=== PATIENT | female | born 1940 | race Caucasian/White ===

== ENCOUNTER 2018-11-27 14:22 | Inpatient (IN) | payer OTHER, MEDICAID ==
[~2018-11-27] VITALS: Ht 160 cm; Wt 108.0 kg
[2018-11-27 14:22] VITALS: BP_SYST 145
[2018-11-27] MEDS ORDERED: KETOROLAC TROMETHAMINE 15 MG VIAL IVP ONE (15:00)
[2018-11-27 15:22] LABS: BASOPHILS % (AUTO) 0.4 % (0.0-2.0); EOSINOPHILS # (AUTO) 0.1 K/uL (0.0-0.4); EOSINOPHILS % (AUTO) 2.1 % (0.0-4.0); HEMATOCRIT 44.2 % (36-48); HEMOGLOBIN 14.5 g/dL (12.0-16.0); LYMPHOCYTES # (AUTO) 0.8 K/uL (1.0-5.5); MEAN CORPUSCULAR HEMOGLOBIN 29 pg (27-31); MEAN CORPUSCULAR HGB CONC 33 % (32-36); MEAN CORPUSCULAR VOLUME 89 fL (79.0-98.0); MONOCYTES # (AUTO) 0.3 K/uL (0.0-1.0); MONOCYTES % (AUTO) 6.6 % (1.7-9.3); NEUTROPHILS % (AUTO) 71.9 % (40.0-70.0); PLATELET COUNT (AUTO) 110 K/uL (130-430); RED BLOOD CELL COUNT(AUTO) 4.98 MIL/uL (4.2-6.2); WHITE BLOOD COUNT (AUTO) 4.1 K/uL (4.8-10.8)
[2018-11-27 15:29] LABS: ANION GAP 6 (5-15); CALCIUM 8.7 mg/dL (8.4-11.0); CHLORIDE 104 mmol/L (98-107); CREATININE 0.81 mg/dL (0.55-1.30); GLUCOSE 95 mg/dL (70-99); SODIUM SERUM 136 mmol/L (136-145); UREA NITROGEN, BLOOD 20 mg/dL (8-21)
[2018-11-27 15:34] LABS: ALANINE AMINOTRANSFERASE 33 U/L (12-78); ALBUMIN 3.2 g/dL (3.4-4.8); ASPARTATE AMINOTRANSFERASE 55 U/L (10-37); LIPASE 117 U/L (73-393); TOTAL BILIRUBIN 0.5 mg/dL (0.0-1.0)
[2018-11-27] MEDS ORDERED: MORPHINE 2 MG/ML INJ. SYRINGE IVP ONE (17:00)
[2018-11-27] MEDS ORDERED: ONDANSETRON HCL 4 MG/2 ML VIAL IVP ONE (17:00)
[2018-11-27] MEDS ORDERED: ASPIRIN 81 MG TAB.CHEW PO ONE (17:00)
[2018-11-27] MEDS ORDERED: LIP10 PO (19:16)
[2018-11-27] MEDS ORDERED: HYDR-4274 PO (19:16)
[2018-11-27] MEDS ORDERED: LEVO125T8 PO (19:16)
[2018-11-27] MEDS ORDERED: CARV6.2554 PO (19:16)
[2018-11-27] MEDS ORDERED: ASPI-1154 PO (19:16)
[2018-11-27] MEDS ORDERED: OLME20TA14 PO (19:17)
[2018-11-27] MEDS ORDERED: IMI50 PO (19:17)
[2018-11-27 21:14] VITALS: BP_SYST 146
[2018-11-27] MEDS ORDERED: LORazepam 2 MG/ML VIAL IVP PRN (21:30)
[2018-11-27] MEDS ORDERED: ONDANSETRON HCL 4 MG/2 ML VIAL IVP PRN (21:30)
[2018-11-27] MEDS: NORMAL SALINE 5 ML DISP.SYRIN IVF SCH (23:01)
[2018-11-27] MEDS: ACETAMINOPHEN 325 MG TABLET PO PRN (23:46)
[2018-11-28 00:16] VITALS: BP_SYST 156
[2018-11-28] MEDS ORDERED: HYDROcodone/ACETAMIN 10-325 MG TAB PO PRN (04:15)
[2018-11-28] MEDS: LEVOTHYROXINE SODIUM 0.125 MG TABLET PO SCH (06:03)
[2018-11-28] MEDS: NORMAL SALINE 5 ML DISP.SYRIN IVF SCH ×3 (06:03→21:46)
[2018-11-28 08:19] VITALS: BP_SYST 138
[2018-11-28] MEDS: CARVEDILOL 6.25 MG TABLET (COREG) PO SCH ×2 (08:35→17:34)
[2018-11-28] MEDS: LOSARTAN POTASSIUM 50 MG TABLET (COZAAR) PO SCH (08:36)
[2018-11-28] MEDS: ASPIRIN 81 MG TABLET(ECOTRIN) PO SCH (08:37)
[2018-11-28] MEDS: ATORVASTATIN 10 MG TABLET PO SCH (08:37)
[2018-11-28 08:40] LABS: BASOPHILS % (AUTO) 0.4 % (0.0-2.0); EOSINOPHILS # (AUTO) 0.1 K/uL (0.0-0.4); HEMATOCRIT 43.4 % (36-48); HEMOGLOBIN 14.5 g/dL (12.0-16.0); LYMPHOCYTES # (AUTO) 0.6 K/uL (1.0-5.5); LYMPHOCYTES % (AUTO) 17.3 % (20.5-51.5); MEAN CORPUSCULAR HEMOGLOBIN 30 pg (27-31); MEAN CORPUSCULAR HGB CONC 33 % (32-36); MEAN CORPUSCULAR VOLUME 89 fL (79.0-98.0); MONOCYTES # (AUTO) 0.2 K/uL (0.0-1.0); MONOCYTES % (AUTO) 5.4 % (1.7-9.3); NEUTROPHILS # (AUTO) 2.6 K/uL (1.8-7.7); NEUTROPHILS % (AUTO) 74.9 % (40.0-70.0); PLATELET COUNT (AUTO) 112 K/uL (130-430); RED BLOOD CELL COUNT(AUTO) 4.89 MIL/uL (4.2-6.2); RED CELL DISTRIBUTION WIDTH 14.7 % (9.0-15.0); WHITE BLOOD COUNT (AUTO) 3.4 K/uL (4.8-10.8)
[2018-11-28 08:54] LABS: ANION GAP 7 (5-15); CALCIUM 8.8 mg/dL (8.4-11.0); CHLORIDE 105 mmol/L (98-107); CREATININE 0.85 mg/dL (0.55-1.30); GLUCOSE 90 mg/dL (70-99); PHOSPHORUS 4.2 mg/dL (2.7-4.5); SODIUM SERUM 137 mmol/L (136-145); UREA NITROGEN, BLOOD 17 mg/dL (8-21)
[2018-11-28] MEDS ORDERED: SUMAtriptan SUCCINATE 50 MG TABLET PO PRN (09:00)
[2018-11-28 12:00] VITALS: BP_SYST 158
[2018-11-28] MEDS: ACETAMINOPHEN 325 MG TABLET PO PRN ×2 (14:43→22:58)
[2018-11-28 15:44] VITALS: BP_SYST 164
[2018-11-28 18:46] VITALS: BP_SYST 140
[2018-11-28 20:00] VITALS: BP_SYST 131
[2018-11-29 00:34] VITALS: BP_SYST 144
[2018-11-29] MEDS: LEVOTHYROXINE SODIUM 0.125 MG TABLET PO SCH (06:15)
[2018-11-29] MEDS: NORMAL SALINE 5 ML DISP.SYRIN IVF SCH (06:16)
[2018-11-29] MEDS: ACETAMINOPHEN 325 MG TABLET PO PRN (06:17)
[2018-11-29 07:28] LABS: BASOPHILS % (AUTO) 0.5 % (0.0-2.0); EOSINOPHILS # (AUTO) 0.1 K/uL (0.0-0.4); EOSINOPHILS % (AUTO) 2.1 % (0.0-4.0); HEMOGLOBIN 14.5 g/dL (12.0-16.0); LYMPHOCYTES # (AUTO) 0.7 K/uL (1.0-5.5); MEAN CORPUSCULAR HEMOGLOBIN 29 pg (27-31); MEAN CORPUSCULAR HGB CONC 33 % (32-36); MEAN CORPUSCULAR VOLUME 89 fL (79.0-98.0); MONOCYTES # (AUTO) 0.3 K/uL (0.0-1.0); NEUTROPHILS # (AUTO) 2.6 K/uL (1.8-7.7); NEUTROPHILS % (AUTO) 71.4 % (40.0-70.0); PLATELET COUNT (AUTO) 109 K/uL (130-430); RED BLOOD CELL COUNT(AUTO) 4.95 MIL/uL (4.2-6.2); RED CELL DISTRIBUTION WIDTH 14.6 % (9.0-15.0); WHITE BLOOD COUNT (AUTO) 3.7 K/uL (4.8-10.8)
[2018-11-29 07:30] LABS: ANION GAP 9 (5-15); CALCIUM 8.7 mg/dL (8.4-11.0); CHLORIDE 103 mmol/L (98-107); CREATININE 0.79 mg/dL (0.55-1.30); GLUCOSE 91 mg/dL (70-99); SODIUM SERUM 137 mmol/L (136-145); UREA NITROGEN, BLOOD 17 mg/dL (8-21)
[2018-11-29 08:20] VITALS: BP_SYST 146
[2018-11-29] MEDS: LOSARTAN POTASSIUM 50 MG TABLET (COZAAR) PO SCH (09:32)
[2018-11-29] MEDS: ASPIRIN 81 MG TABLET(ECOTRIN) PO SCH (09:32)
[2018-11-29] MEDS: ATORVASTATIN 10 MG TABLET PO SCH (09:32)
[2018-11-29] MEDS: CARVEDILOL 6.25 MG TABLET (COREG) PO SCH (09:32)
[2018-11-29 10:27] VITALS: BP_SYST 112
[2018-11-29 11:26] VITALS: BP_SYST 135
[2018-11-29 15:49] VITALS: BP_SYST 112
== END 2018-11-29 18:15 | disposition home or self-care (01) | DRG 194 ==
LOC: SED 14:22 → STU 17:27
PROVIDERS: ADMIT Preventive Medicine Preventive Medicine/Occupational Environmental Medicine; ATTEND Preventive Medicine Preventive Medicine/Occupational Environmental Medicine
DX: R09.1 Pleurisy (principal); Z68.41 Body mass index [BMI] 40.0-44.9, adult; D69.6 Thrombocytopenia, unspecified; E78.00 Pure hypercholesterolemia, unspecified; I25.10 Atherosclerotic heart disease of native coronary artery without angina pectoris; E03.9 Hypothyroidism, unspecified; E80.6 Other disorders of bilirubin metabolism; I10 Essential (primary) hypertension; Z86.73 Personal history of transient ischemic attack (TIA), and cerebral infarction without residual deficits; Z90.49 Acquired absence of other specified parts of digestive tract; Z88.2 Allergy status to sulfonamides; Z90.710 Acquired absence of both cervix and uterus; Z88.8 Allergy status to other drugs, medicaments and biological substances; E66.9 Obesity, unspecified
CPT/HCPCS: 36415; 71045; 80048; 80053; 82550-TC; 83690-TC; 83735-TC; 83880; 84100-TC; 84484; 85025; 93005; 93306; 96374; 96375; 99285; G0378; J1885; J2270; J2405

== ENCOUNTER 2019-03-15 10:29 | Emergency (ER) | payer MEDICAID, OTHER ==
[~2019-03-15] VITALS: Ht 160 cm; Wt 113.4 kg
[~2019-03-15 10:29] MED LIST: ASPI-1154 PO; CARV6.2554 PO; HYDR-4274 PO; IMI50 PO; LEVO125T8 PO; LIP10 PO; OLME20TA14 PO
[2019-03-15 10:30] VITALS: BP_SYST 141
[2019-03-15] MEDS ORDERED: ACETAMINOPHEN 500 MG TABLET PO ONE (10:45)
[2019-03-15] MEDS ORDERED: NACL 0.9% 1,000 ML IV ONE (10:45)
[2019-03-15 11:38] LABS: BASOPHILS % (AUTO) 0.7 % (0.0-2.0); EOSINOPHILS # (AUTO) 0.1 K/uL (0.0-0.4); EOSINOPHILS % (AUTO) 1.7 % (0.0-4.0); HEMATOCRIT 44.4 % (36-48); HEMOGLOBIN 14.8 g/dL (12.0-16.0); LYMPHOCYTES # (AUTO) 0.8 K/uL (1.0-5.5); LYMPHOCYTES % (AUTO) 15.3 % (20.5-51.5); MEAN CORPUSCULAR HEMOGLOBIN 30 pg (27-31); MEAN CORPUSCULAR HGB CONC 33 % (32-36); MEAN CORPUSCULAR VOLUME 91 fL (79.0-98.0); MONOCYTES # (AUTO) 0.4 K/uL (0.0-1.0); MONOCYTES % (AUTO) 7.5 % (1.7-9.3); NEUTROPHILS # (AUTO) 3.7 K/uL (1.8-7.7); NEUTROPHILS % (AUTO) 74.8 % (40.0-70.0); PLATELET COUNT (AUTO) 117 K/uL (130-430); RED BLOOD CELL COUNT(AUTO) 4.88 MIL/uL (4.2-6.2); RED CELL DISTRIBUTION WIDTH 15.6 % (9.0-15.0)
[2019-03-15 11:50] LABS: ANION GAP 7 (5-15); CALCIUM 8.9 mg/dL (8.4-11.0); CHLORIDE 105 mmol/L (98-107); CREATININE 0.84 mg/dL (0.55-1.30); GLUCOSE 80 mg/dL (70-99); POTASSIUM 4.1 mmol/L (3.5-5.1); SODIUM SERUM 142 mmol/L (136-145); UREA NITROGEN, BLOOD 21 mg/dL (8-21)
[2019-03-15 11:56] LABS: ALANINE AMINOTRANSFERASE 13 U/L (12-78); ALBUMIN 3.2 g/dL (3.4-4.8); ASPARTATE AMINOTRANSFERASE 18 U/L (10-37); TOTAL BILIRUBIN 0.4 mg/dL (0.0-1.0)
[2019-03-15 13:20] LABS: BILIRUBIN,URINE NEGATIVE (NEGATIVE); BLOOD, URINE 1+ (NEGATIVE); CLARITY/URINE SL HAZY (CLEAR); COLOR,URINE YELLOW (YELLOW); GLUCOSE,URINE NEGATIVE (NEGATIVE); KETONES,URINE NEGATIVE (NEGATIVE); LEUKOCYTE ESTERASE ,URINE TRACE (NEGATIVE); NITRITE, URINE POSITIVE (NEGATIVE); PH,URINE 7.5 (5.0-8.0); PROTEIN URINE NEGATIVE (NEGATIVE); UROBILINOGEN,URINE 0.2 (0.2-1.0)
[2019-03-15] MEDS ORDERED: NITROFURANTOIN MONOHYD/M-CRYST 100 MG CAPSULE PO ONE (13:30)
[2019-03-15 13:42] LABS: BACTERIA,URINE MANY /HPF (None Seen)
[2019-03-15] MEDS ORDERED: KETOROLAC TROMETHAMINE 30 MG VIAL IVP ONE (14:15)
[2019-03-15 15:07] VITALS: BP_SYST 139
== END 2019-03-15 21:56 | disposition home or self-care (01) ==
LOC: SED 10:29
DX: R55 Syncope and collapse (principal); N39.0 Urinary tract infection, site not specified; I10 Essential (primary) hypertension; E78.00 Pure hypercholesterolemia, unspecified; Z88.2 Allergy status to sulfonamides; Z88.5 Allergy status to narcotic agent; Z91.011 Allergy to milk products; Z79.899 Other long term (current) drug therapy
CPT/HCPCS: 36415; 70450; 71045; 80053; 81000; 83605; 84484; 85025; 87040; 87086; 93005; 96361; 96374; 99284; J1885; J7030

== ENCOUNTER 2019-05-26 11:21 | Emergency (ER) | payer OTHER, MEDICAID ==
[~2019-05-26 11:21] MED LIST changes: -ASPI-1154 PO; +ASPI-1457 PO; +OLME20TA13 PO; -OLME20TA14 PO
[2019-05-29 17:33] LABS: BASOPHILS % (AUTO) 0.3 % (0.0-2.0); EOSINOPHILS % (AUTO) 0.9 % (0.0-4.0); HEMATOCRIT 45.7 % (36-48); HEMOGLOBIN 15.2 g/dL (12.0-16.0); LYMPHOCYTES # (AUTO) 0.5 K/uL (1.0-5.5); LYMPHOCYTES % (AUTO) 12.2 % (20.5-51.5); MEAN CORPUSCULAR HEMOGLOBIN 30 pg (27-31); MEAN CORPUSCULAR HGB CONC 33 % (32-36); MEAN CORPUSCULAR VOLUME 91 fL (79.0-98.0); MONOCYTES # (AUTO) 0.3 K/uL (0.0-1.0); MONOCYTES % (AUTO) 7.2 % (1.7-9.3); NEUTROPHILS # (AUTO) 3.2 K/uL (1.8-7.7); NEUTROPHILS % (AUTO) 79.4 % (40.0-70.0); PLATELET COUNT (AUTO) 109 K/uL (130-430); RED BLOOD CELL COUNT(AUTO) 5.03 MIL/uL (4.2-6.2); RED CELL DISTRIBUTION WIDTH 14.7 % (9.0-15.0)
[2019-05-29 17:39] LABS: ALANINE AMINOTRANSFERASE 16 U/L (12-78); ANION GAP 6 (5-15); ASPARTATE AMINOTRANSFERASE 25 U/L (10-37); CALCIUM 8.3 mg/dL (8.4-11.0); CHLORIDE 105 mmol/L (98-107); CREATININE 0.98 mg/dL (0.55-1.30); GLUCOSE 74 mg/dL (70-99); POTASSIUM 3.9 mmol/L (3.5-5.1); SODIUM SERUM 139 mmol/L (136-145); TOTAL BILIRUBIN 0.3 mg/dL (0.0-1.0); UREA NITROGEN, BLOOD 18 mg/dL (8-21)
[2019-05-29 17:40] LABS: ALBUMIN 3.1 g/dL (3.4-4.8)
[2019-05-29 17:45] LABS: BILIRUBIN,URINE NEGATIVE (NEGATIVE); BLOOD, URINE 1+ (NEGATIVE); CLARITY/URINE HAZY (CLEAR); COLOR,URINE YELLOW (YELLOW); GLUCOSE,URINE NEGATIVE (NEGATIVE); KETONES,URINE NEGATIVE (NEGATIVE); LEUKOCYTE ESTERASE ,URINE 1+ (NEGATIVE); PROTEIN URINE NEGATIVE (NEGATIVE)
[2019-05-29 17:46] LABS: NITRITE, URINE POSITIVE (NEGATIVE)
[2019-05-29 18:25] LABS: BACTERIA,URINE MODERATE /HPF (None Seen); RBC,URINE 0-3 /HPF (0-3)
[2019-05-29 18:26] LABS: MUCUS,URINE 1+ /LPF (None Seen)
[2019-06-16 09:46] LABS: HEMOGLOBIN 15.2 g/dL (12.0-16.0); LYMPHOCYTES % (AUTO) 12.2 % (20.5-51.5); MEAN CORPUSCULAR HEMOGLOBIN 30 pg (27-31); MEAN CORPUSCULAR HGB CONC 33 % (32-36); MEAN CORPUSCULAR VOLUME 91 fL (79.0-98.0); MONOCYTES % (AUTO) 7.2 % (1.7-9.3); NEUTROPHILS % (AUTO) 79.4 % (40.0-70.0); PLATELET COUNT (AUTO) 109 K/uL (130-430); RED BLOOD CELL COUNT(AUTO) 5.03 MIL/uL (4.2-6.2); RED CELL DISTRIBUTION WIDTH 14.7 % (9.0-15.0)
[2019-06-16 09:47] LABS: BASOPHILS % (AUTO) 0.3 % (0.0-2.0); EOSINOPHILS % (AUTO) 0.9 % (0.0-4.0); LYMPHOCYTES # (AUTO) 0.5 K/uL (1.0-5.5); MONOCYTES # (AUTO) 0.3 K/uL (0.0-1.0); NEUTROPHILS # (AUTO) 3.2 K/uL (1.8-7.7)
[2019-06-16 09:48] LABS: BILIRUBIN,URINE 1+ (NEGATIVE); BLOOD, URINE 1+ (NEGATIVE); CLARITY/URINE CLEAR (CLEAR); COLOR,URINE YELLOW (YELLOW); GLUCOSE,URINE NEGATIVE (NEGATIVE); KETONES,URINE NEGATIVE (NEGATIVE); PROTEIN URINE NEGATIVE (NEGATIVE)
[2019-06-16 09:49] LABS: LEUKOCYTE ESTERASE ,URINE NEGATIVE (NEGATIVE); NITRITE, URINE POSITIVE (NEGATIVE)
[2019-06-16 09:51] LABS: BACTERIA,URINE MODERATE /HPF (None Seen); MUCUS,URINE 1+ /LPF (None Seen); RBC,URINE 0-3 /HPF (0-3)
== END 2019-05-26 14:46 | disposition home or self-care (01) ==
LOC: SED 11:21
DX: N39.0 Urinary tract infection, site not specified (principal); R53.1 Weakness
CPT/HCPCS: 36415; 71045; 80053; 81000-TC; 84484; 85025; 86710; 87040-TC; 87086; 93005; 96365; 96375; 99284

== ENCOUNTER 2019-06-22 10:37 | Inpatient (IN) | payer OTHER, MEDICAID ==
[~2019-06-22] VITALS: Ht 160 cm; Wt 126.6 kg
[2019-06-22 10:37] VITALS: BP_SYST 102
--- NOTE | 2019-06-22 10:37 | NUR ---
Placed in room 6. Placed on pvc monitor, blood pressure machine and pulse oximeter. To gown for exam. Side rails up. Report given to ERIN Hernandez.
--- NOTE | 2019-06-22 11:04 | NUR ---
PATIENT PRESENTS TO THE ER WITH HX OF SUBSTERNAL CHEST PAIN WITH FRONTAL HEADACHE FOR 2 DAYS; NO TRAUMA, NO OTHER REMARKABLE S/S; PATIENT ARRIVED ACLS WITH IV #20 LEFT FOREARM; PLACED IN ER #6 AT 1040 AND EKG PERFORMED AND GIVEN TO ERMD PROMPTLY; ERMD EVALUATION 1045; NO TRAUMA, NO OTHER REMARKABLE S/S
--- NOTE | 2019-06-22 12:00 | NUR ---
REASSESSMENT; PATIENT IS SEDATE AND SHOWING MARGINAL IMPROVEMENT IN SYMPTOMS; DISPOSITION PENDING
--- NOTE | 2019-06-22 12:01 | NUR ---
OXYGEN 2LM NC PLACED AT 1120
[2019-06-22 12:14] LABS: BASOPHILS % (AUTO) 0.5 % (0.0-2.0); EOSINOPHILS # (AUTO) 0.1 K/uL (0.0-0.4); EOSINOPHILS % (AUTO) 1.8 % (0.0-4.0); HEMATOCRIT 45.4 % (36-48); HEMOGLOBIN 15.2 g/dL (12.0-16.0); LYMPHOCYTES # (AUTO) 0.7 K/uL (1.0-5.5); LYMPHOCYTES % (AUTO) 11.9 % (20.5-51.5); MEAN CORPUSCULAR HEMOGLOBIN 30 pg (27-31); MEAN CORPUSCULAR HGB CONC 34 % (32-36); MEAN CORPUSCULAR VOLUME 90 fL (79.0-98.0); MONOCYTES # (AUTO) 0.4 K/uL (0.0-1.0); MONOCYTES % (AUTO) 7.4 % (1.7-9.3); NEUTROPHILS # (AUTO) 4.4 K/uL (1.8-7.7); NEUTROPHILS % (AUTO) 78.4 % (40.0-70.0); PLATELET COUNT (AUTO) 127 K/uL (130-430); RED BLOOD CELL COUNT(AUTO) 5.05 MIL/uL (4.2-6.2); RED CELL DISTRIBUTION WIDTH 15.2 % (9.0-15.0); WHITE BLOOD COUNT (AUTO) 5.7 K/uL (4.8-10.8)
[2019-06-22 12:26] LABS: ANION GAP 6 (5-15); CALCIUM 8.8 mg/dL (8.4-11.0); CHLORIDE 103 mmol/L (98-107); CREATININE 0.91 mg/dL (0.55-1.30); GLUCOSE 88 mg/dL (70-99); SODIUM SERUM 138 mmol/L (136-145); UREA NITROGEN, BLOOD 18 mg/dL (8-21)
[2019-06-22] MEDS ORDERED: PROCHLORPERAZINE EDISYLATE 10 MG/2 ML VIAL IVP ONE (12:30)
[2019-06-22] MEDS ORDERED: KETOROLAC TROMETHAMINE 30 MG VIAL IVP ONE (12:30)
[2019-06-22 12:31] LABS: ALANINE AMINOTRANSFERASE 23 U/L (12-78); ALBUMIN 3.3 g/dL (3.4-4.8); ASPARTATE AMINOTRANSFERASE 22 U/L (10-37); TOTAL BILIRUBIN 0.4 mg/dL (0.0-1.0)
--- NOTE | 2019-06-22 13:28 | NUR ---
REASSESSMENT; PATIENT REMAINS SEDATE AND STATES HER SYMPTOMS ARE IMPROVED; DISPOSITION PENDING
--- NOTE | 2019-06-22 13:37 | NUR ---
[facility] [employer], requested fax of clinicals. fax: [phone]
--- NOTE | 2019-06-22 14:57 | NUR ---
REASSESSMENT BY ERMNorma; PREPARATIONS TO ADMIT TO TELE; DR NASSAR PHONED FOR ADMISSION ORDERS AND BED 103 B ASSIGNED; PATIENT IS IMPROVED AND SEDATE AND WAS TRANSFERRED TO TELE ACLS AT 1510
[2019-06-22 15:15] VITALS: BP_SYST 157
--- NOTE | 2019-06-22 15:15 | NUR ---
Admission: Received from ER on a gurney with the diagnosis of CHEST PAIN. Patient is oriented x4. Unable to walk from gurney to bed due to weakness. On o2 2 li/min via nasal cannula when received. Oriented to room, call light within reach.
--- NOTE | 2019-06-22 15:22 | NUR ---
CONSULTATION PAGED/CALLED Reason for Consultation: [] CP Person Who was Notified: [] YESEKA Consulting Physician: [] DR SCHWAB [place] [facility] Specialty: [] CARDIOLOGY Ordering Physician: [] DR NASSAR
--- NOTE | 2019-06-22 15:30 | NUR ---
INITIAL NOTES: PATIENT IN THE ROOM AND LYING ON THE BED,O2 2L/NC,GOOD SATURATION. OBESE LADY.IV AT RIGHT ARM IN PLACE.ORIENTED TO CALL LIGHT. BED LOCKED AT LOWEST POSITION. NOT IN ANY DISTRESS. CONTINUE TO MONITOR.SAFETY MEASURES RENDERED.
--- NOTE | 2019-06-22 18:15 | NUR ---
CARDIO ROUNDS: DR SCHWAB SEEN PATIENT IN THE ROOM. PATIENT HAVING DINNER.
--- NOTE | 2019-06-22 18:20 | NUR ---
END OF SHIFT: DENIES ANY CHEST PAIN THIS TIME. PATIENT HAVING DINNER. CALL LIGHT WITH IN REACH. BED LOCKED AT LOWEST POSITION. SAFETY MEASURES RENDERED.
[2019-06-22] MEDS ORDERED: ZOLPIDEM TARTRATE 5 MG TABLET PO PRN (18:30)
[2019-06-22] MEDS ORDERED: NITROGLYCERIN 0.4 MG TAB.SUBL SL PRN (18:30)
[2019-06-22 20:00] VITALS: BP_SYST 136
--- NOTE | 2019-06-22 20:00 | NUR ---
ASSUMED CARE. RECEIVED ALERT,ORIENTED. AFEBRILE, NOT IN ACUTE DISTRESS. DENIES CHEST PAIN,SOB BUT COMPLAINED OF BILATERAL LEG PAIN (7/10). SAO2=96% ON ROOM AIR. SINUS BRADYCARDIA AT 57/MINUTE ON THE MONITOR. VS ARE OTHERWISE STABLE, WILL CONTINUE TO MONITOR. NEEDS ATTENDED.
[2019-06-22] MEDS: CARVEDILOL 6.25 MG TABLET (COREG) PO SCH (21:00)
[2019-06-22] MEDS: ACETAMINOPHEN 325 MG TABLET PO PRN (21:08)
--- NOTE | 2019-06-22 21:08 | NUR ---
COREG NOT GIVEN DUE TO HR=50'S/MINUTE. TYLENOL 650 MG PO GIVEN ORDERED FOR PAIN.
--- NOTE | 2019-06-23 | NUR ---
ASLEEP, NOT IN ANY KIND OF DISTRESS. NO PAIN OR DISCOMFORT NOTED. SIDE RAILS UP, CALL LIGHT WITHIN REACH. KEPT WARM AND COMFORTABLE. VS REMAIN STABLE.
[2019-06-23 00:08] VITALS: BP_SYST 120
--- NOTE | 2019-06-23 04:00 | NUR ---
AWAKE, NOT IN ACUTE DISTRESS. NO PAIN OR DISCOMFORT NOTED. NO CHANGE OF CONDITION. WILL CONTINUE TO MONITOR.
--- NOTE | 2019-06-23 07:15 | NUR ---
OPENING NOTE RECEIVED REPORT FROM [facility] NURSE. PT AWAKE AND ALERT IN BED. NO ACUTE DISTRESS NOTED. BED IN LOWEST AND LOCKED POSITION. BED ALARM ON. CALL LIGHT IN REACH. ALL NEEDS MET. FALL AND ASPIRATION PRECAUTIONS IN PLACE. IV INTACT AND PATENT. NO SIGNS OR SYMPTOMS OF INFILTRATION. CONTINUE TO MONITOR.
--- NOTE | 2019-06-23 07:15 | NUR ---
ENDORSED CARE TO MAG MCDONALD.
[2019-06-23 08:00] VITALS: BP_SYST 138
[2019-06-23] MEDS: ATORVASTATIN 10 MG TABLET PO SCH (08:18)
[2019-06-23] MEDS: LEVOTHYROXINE SODIUM 0.125 MG TABLET PO SCH (08:18)
[2019-06-23] MEDS: ASPIRIN 81 MG TABLET(ECOTRIN) PO SCH (08:18)
[2019-06-23] MEDS: FAMOTIDINE 20 MG TABLET PO SCH (08:18)
[2019-06-23] MEDS: CARVEDILOL 6.25 MG TABLET (COREG) PO SCH (08:21)
--- NOTE | 2019-06-23 08:22 | NUR ---
MEDS ADMINISTERED MEDS ORDERED. TOLERATED WELL. EDUCATION GIVEN. HELD COREG DUE TO LOW HEART RATE: 53 BPM. NO ACUTE DISTRESS NOTED. FALL AND ASPIRATIONS PRECAUTIONS IN PLACE. ALL NEEDS MET. CONTINUE TO MONITOR.
[2019-06-23 08:34] LABS: ANION GAP 5 (5-15); CALCIUM 8.4 mg/dL (8.4-11.0); CHLORIDE 102 mmol/L (98-107); CREATININE 0.87 mg/dL (0.55-1.30); GLUCOSE 97 mg/dL (70-99); POTASSIUM 5.2 mmol/L (3.5-5.1); SODIUM SERUM 139 mmol/L (136-145); THYROID STIMULATING HORMONE 3.79 uIu/mL (0.36-3.74); UREA NITROGEN, BLOOD 22 mg/dL (8-21)
--- NOTE | 2019-06-23 09:00 | NUR ---
note ASSISTED PATIENT ONTO BEDSIDE COMMODE, VOIDEDX1, MARÍA WELL. REPOSITIONED WITH PILLOWS. ALL NEEDS MET. CALL LIGHT IN REACH. CONT TO MONITOR.
[2019-06-23 09:17] LABS: CHOLESTEROL 150 mg/dL (<200); HDL CHOLESTEROL 35 mg/dL (>55); LDL CHOLESTEROL 86 mg/dL (<100); TRIGLYCERIDES 142 mg/dL (30-150)
--- NOTE | 2019-06-23 10:43 | NUR ---
DR. SCHWAB / ASSISTED PT TO COMMODE DR. SCHWAB SEEN PT AT BEDSIDE. ASSISTED PT TO COMMODE. TOLERATED WELL. NO ACUTE DISTRESS NOTED.
[2019-06-23] MEDS ORDERED: SODIUM POLYSTYRENE SULFONATE 15 GM/60 ML UDBTL PO ONE (11:00)
[2019-06-23 12:00] VITALS: BP_SYST 133
--- NOTE | 2019-06-23 12:43 | NUR ---
ROUNDS PT AWAKE AND ALERT IN BED. NO ACUTE DISTRESS NOTED. CALL LIGHT WITHIN REACH. ALL NEEDS MET. FALL AND ASPIRATION PRECAUTIONS IN PLACE. CONTINUE TO MONITOR.
--- NOTE | 2019-06-23 14:45 | NUR ---
ROUNDS PT AWAKE AND ALERT IN BED. NO ACUTE DISTRESS NOTED. HOB ELEVATED. ALL NEEDS MET. CALL LIGHT IN REACH. FALL AND ASPIRATION PRECAUTIONS IN PLACE. CONTINUE TO MONITOR.
--- NOTE | 2019-06-23 16:45 | NUR ---
ROUNDS PT AWAKE AND ALERT IN BED WATCHING TV. NO ACUTE DISTRESS NOTED. ALL NEEDS MET. CALL LIGHT IN REACH. FALL AND ASPIRATION PRECAUTIONS IN PLACE. CONTINUE TO MONITOR.
--- NOTE | 2019-06-23 17:45 | NUR ---
COMMODE ASSISTED PT FROM COMMODE TO BED. TOLERATED WELL. NO ACUTE DISTRESS NOTED. ALL NEEDS MET. CALL LIGHT IN REACH. FALL AND ASPIRATION PRECAUTIONS IN PLACE. CONTINUE TO MONITOR.
--- NOTE | 2019-06-23 19:15 | NUR ---
CLOSING NOTE PATIENT STABLE. DENIES PAIN AT THIS TIME. NO ACUTE DISTRESS. NO SOB. RESPIRATION EVEN AND UNLABORED. SKIN WARM AND DRY TO TOUCH. IV INTACT AND PATENT. ALL NEEDS MET. CALL LIGHT IN REACH. CONT TO MONITOR. ENDORSED TO SAGRARIO KHAN.
[2019-06-23 20:00] VITALS: BP_SYST 145
--- NOTE | 2019-06-23 20:00 | NUR ---
ASSUMED CARE. RECEIVED ALERT,ORIENTED. AFEBRILE, NOT IN ACUTE DISTRESS. DENIES CHEST PAIN,SOB BUT COMPLAINED OF BILATERAL LEG PAIN (8/10). SAO2=96% ON ROOM AIR. SINUS RHYTHM AT 6O'S/MINUTE ON THE MONITOR. VS ARE OTHERWISE STABLE, WILL CONTINUE TO MONITOR. NEEDS ATTENDED.
[2019-06-23] MEDS: ACETAMINOPHEN 325 MG TABLET PO PRN (20:39)
--- NOTE | 2019-06-23 20:39 | NUR ---
TYLENOL 650 MG PO GIVEN ORDERED FOR PAIN.
--- NOTE | 2019-06-23 21:30 | NUR ---
VERBALIZED SIGNIFICANT IMPROVEMENT OF PAIN (5/10).
--- NOTE | 2019-06-24 | NUR ---
AWAKE, NOT IN ANY KIND OF DISTRESS. NO PAIN OR DISCOMFORT NOTED. SIDE RAILS UP, CALL LIGHT WITHIN REACH. KEPT WARM AND COMFORTABLE. VS REMAIN STABLE.
--- NOTE | 2019-06-24 01:06 | NUR ---
COMPLAINED OF INABILITY TO SLEEP. AMBIEN 5 MG PO GIVEN REQUESTED.
[2019-06-24 01:45] VITALS: BP_SYST 134
--- NOTE | 2019-06-24 04:00 | NUR ---
ASLEEP, NOT IN ACUTE DISTRESS. NO PAIN OR DISCOMFORT NOTED. NO CHANGE IN CONDITION.
--- NOTE | 2019-06-24 07:00 | NUR ---
ENDORSED CARE TO MAG MCDONALD.
--- NOTE | 2019-06-24 07:00 | NUR ---
OPENING NOTE RECEIVED REPORT FROM [facility] NURSE. PT RESTING IN BED. CHEST RISE AND FALL NOTED. NO ACUTE DISTRESS NOTED. BED IN LOWEST AND LOCKED POSITION. CALL LIGHT IN REACH. IV INTACT AND PATENT. NO SIGNS OF INFILTRATION NOTED. FALL AND ASPIRATION PRECAUTIONS IN PLACE. CONTINUE TO MONITOR.
[2019-06-24 08:00] VITALS: BP_SYST 150
[2019-06-24] MEDS: ASPIRIN 81 MG TABLET(ECOTRIN) PO SCH (08:25)
[2019-06-24] MEDS: FAMOTIDINE 20 MG TABLET PO SCH (08:25)
[2019-06-24] MEDS: LEVOTHYROXINE SODIUM 0.125 MG TABLET PO SCH (08:25)
[2019-06-24] MEDS: ATORVASTATIN 10 MG TABLET PO SCH (08:25)
--- NOTE | 2019-06-24 08:25 | NUR ---
MEDS MEDS ADMINISTERED ORDERED PER MD. TOLERATED WELL. EDUCATION GIVEN. NO ACUTE DISTRESS NOTED. HOB ELEVATED. ALL NEEDS MET. CALL LIGHT IN REACH. FALL AND ASPIRATION PRECAUTIONS IN PLACE. CONTINUE TO MONITOR.
[2019-06-24] MEDS: ACETAMINOPHEN 325 MG TABLET PO PRN (08:32)
[2019-06-24 08:41] LABS: ANION GAP 5 (5-15); CALCIUM 8.6 mg/dL (8.4-11.0); CHLORIDE 102 mmol/L (98-107); CREATININE 0.82 mg/dL (0.55-1.30); GLUCOSE 94 mg/dL (70-99); POTASSIUM 4.4 mmol/L (3.5-5.1); SODIUM SERUM 139 mmol/L (136-145); UREA NITROGEN, BLOOD 17 mg/dL (8-21)
--- NOTE | 2019-06-24 09:25 | NUR ---
COMMODE ASSIST ASSISTED PT TO COMMODE. TOLERATED WELL NO ACUTE DISTRESS NOTED. CALL LIGHT IN REACH. FALL AND ASPIRATION PRECAUTIONS IN PLACE.
--- NOTE | 2019-06-24 11:25 | NUR ---
ROUNDS PT IS AWAKE AND ALERT IN BED. NO ACUTE DISTRESS NOTED. ALL NEEDS MET. CALL LIGHT IN REACH. FALL AND ASPIRATION PRECAUTIONS IN PLACE. CONTINUE TO MONITOR.
[2019-06-24 12:00] VITALS: BP_SYST 142
--- NOTE | 2019-06-24 12:00 | NUR ---
NOTE ASSISTED PATIENT ON BSC. REPOSITIONED PATIENT BACK TO EDGE OF BED FOR LUNCH. MARÍA WELL. DENIES PAIN. ALL NEEDS MET. CONT TO MONITOR. CALL LIGHT IN REACH
--- NOTE | 2019-06-24 14:00 | NUR ---
COMMODE ASSISTED PT TO COMMODE. TOLERATED WELL. NO ACUTE DISTRESS NOTED. ALL NEEDS MET. CALL LIGHT IN REACH. FALL AND ASPIRATION PRECAUTIONS IN PLACE. CONTINUE TO MONITOR.
--- NOTE | 2019-06-24 16:00 | NUR ---
ROUNDS PT AWAKE AND ALERT IN BED. WATCHING TELEVISION. NO ACUTE DISTRESS NOTED. CALL LIGHT IN REACH. FALL AND ASPIRATION PRECAUTIONS IN PLACE. ALL NEEDS MET. CONTINUE TO MONITOR.
--- NOTE | 2019-06-24 16:25 | NUR ---
Dietitian Recommendations *Continue 2gmNa diet please see Nutrition Assessment for further details. LT, RD
[2019-06-24 16:37] VITALS: BP_SYST 149
--- NOTE | 2019-06-24 17:35 | NUR ---
D/C Patient Patient given medication reconciliation form and D/C instructions. Exit Care provided. Patient verbalized understanding. MD discussed with patient the results and treatment provided. Ambulatory with assist for discharge to home. Patient in stable condition, ID band removed. IV catheter removed, intact and dressing applied, no active bleeding. Patient educated on pain management. All belongings sent with patient.
== END 2019-06-24 17:55 | disposition home or self-care (01) | DRG 206 ==
LOC: SED 10:37 → STU 14:44
PROVIDERS: ADMIT Internal Medicine; ATTEND Internal Medicine
DX: M94.0 Chondrocostal junction syndrome [Tietze] (principal); I69.354 Hemiplegia and hemiparesis following cerebral infarction affecting left non-dominant side; Z68.42 Body mass index [BMI] 45.0-49.9, adult; E44.1 Mild protein-calorie malnutrition; D69.6 Thrombocytopenia, unspecified; E03.9 Hypothyroidism, unspecified; E66.01 Morbid (severe) obesity due to excess calories; E78.5 Hyperlipidemia, unspecified; F03.90 Unspecified dementia, unspecified severity, without behavioral disturbance, psychotic disturbance, mood disturbance, and anxiety; G62.9 Polyneuropathy, unspecified; I10 Essential (primary) hypertension; I25.10 Atherosclerotic heart disease of native coronary artery without angina pectoris; Z90.49 Acquired absence of other specified parts of digestive tract; Z90.710 Acquired absence of both cervix and uterus; Z88.5 Allergy status to narcotic agent; Z91.011 Allergy to milk products; Z79.899 Other long term (current) drug therapy; Z79.82 Long term (current) use of aspirin; K21.9 Gastro-esophageal reflux disease without esophagitis
CPT/HCPCS: 36415; 71045; 80048; 80053; 80061; 82550-TC; 83880; 84443-TC; 84484; 85025; 96374; 96375; 99291; G0378; J0780; J1885

== ENCOUNTER 2019-10-14 16:28 | Inpatient (IN) | payer OTHER, MEDICAID ==
[~2019-10-14] VITALS: Ht 160 cm; Wt 128.8 kg
[~2019-10-14 16:28] MED LIST changes: -CARV6.2554 PO; -HYDR-4274 PO
[2019-10-14 16:29] VITALS: BP_SYST 155
[2019-10-14 17:06] LABS: BASOPHILS % (AUTO) 0.2 % (0.0-2.0); EOSINOPHILS % (AUTO) 0.6 % (0.0-4.0); HEMATOCRIT 43.8 % (36-48); HEMOGLOBIN 14.4 g/dL (12.0-16.0); LYMPHOCYTES # (AUTO) 0.4 K/uL (1.0-5.5); LYMPHOCYTES % (AUTO) 5.9 % (20.5-51.5); MEAN CORPUSCULAR HEMOGLOBIN 30 pg (27-31); MEAN CORPUSCULAR HGB CONC 33 % (32-36); MEAN CORPUSCULAR VOLUME 90 fL (79.0-98.0); MONOCYTES # (AUTO) 0.3 K/uL (0.0-1.0); MONOCYTES % (AUTO) 5.1 % (1.7-9.3); NEUTROPHILS # (AUTO) 5.7 K/uL (1.8-7.7); NEUTROPHILS % (AUTO) 88.2 % (40.0-70.0); PLATELET COUNT (AUTO) 128 K/uL (130-430); RED BLOOD CELL COUNT(AUTO) 4.86 MIL/uL (4.2-6.2); RED CELL DISTRIBUTION WIDTH 15.2 % (9.0-15.0); WHITE BLOOD COUNT (AUTO) 6.5 K/uL (4.8-10.8)
[2019-10-14 17:24] LABS: PROTHROMBIN TIME 10.1 SECS (9.5-12.5)
[2019-10-14 17:37] LABS: ANION GAP 11 (5-15); CALCIUM 8.1 mg/dL (8.4-11.0); CHLORIDE 102 mmol/L (98-107); CREATININE 0.99 mg/dL (0.55-1.30); GLUCOSE 132 mg/dL (70-99); SODIUM SERUM 140 mmol/L (136-145); UREA NITROGEN, BLOOD 16 mg/dL (8-21)
[2019-10-14 17:42] LABS: ALANINE AMINOTRANSFERASE 65 U/L (12-78); ALBUMIN 3.2 g/dL (3.4-4.8); ASPARTATE AMINOTRANSFERASE 48 U/L (10-37); TOTAL BILIRUBIN 0.5 mg/dL (0.0-1.0)
[2019-10-14 17:54] LABS: ALCOHOL, BLOOD < 3 mg/dL (<10)
[2019-10-14] MEDS ORDERED: ACETAMINOPHEN 500 MG TABLET PO ONE (18:00)
[2019-10-14 18:19] LABS: BILIRUBIN,URINE NEGATIVE (NEGATIVE); BLOOD, URINE 2+ (NEGATIVE); COLOR,URINE YELLOW (YELLOW); GLUCOSE,URINE NEGATIVE (NEGATIVE); KETONES,URINE NEGATIVE (NEGATIVE); LEUKOCYTE ESTERASE ,URINE NEGATIVE (NEGATIVE); NITRITE, URINE POSITIVE (NEGATIVE); PROTEIN URINE TRACE (NEGATIVE); UROBILINOGEN,URINE 0.2 (0.2-1.0)
[2019-10-14 18:47] LABS: CLARITY/URINE HAZY (CLEAR)
[2019-10-14 18:54] LABS: BACTERIA,URINE MANY /HPF (None Seen); MUCUS,URINE None Seen /LPF (None Seen); WBC,URINE 0-3 /HPF (0-3)
[2019-10-14 18:55] LABS: FREE T4 (FREE THYROXINE) 1.1 ng/dl (0.8-1.5)
[2019-10-14] MEDS ORDERED: LEVOFLOXACIN 500 MG/D5W 100 ML IV ONE (19:00)
[2019-10-14] MEDS ORDERED: ENOXAPARIN SODIUM 100 MG/ML SYRINGE SUBCUT ONE (19:00)
[2019-10-14 19:15] LABS: BARBITURATE, URINE NEGATIVE (NEG <=200); BENZODIAZEPINE, URINE NEGATIVE (NEG <=150); CANNABINOID, URINE NEGATIVE (NEG <=50); COCAINE, URINE NEGATIVE (NEG <=150); METHAMPHETAMINES SCREEN,URINE NEGATIVE (NEG <=500); OPIATE, URINE NEGATIVE (NEG <=100); PHENCYCLIDINE SCREEN,URINE NEGATIVE (NEG <=25); UR TRICYCLIC ANTIDEPRESSANTS NEGATIVE (NEG <=300); URINE AMPHETAMINE NEGATIVE (NEG <=500); URINE METHADONE NEGATIVE (NEG <=200); URINE OXYCODONE SCREEN NEGATIVE (NEG <=100); URINE PROPOXYPHENE SCREEN NEGATIVE (NEG <=300)
[2019-10-14] MEDS ORDERED: SUMAtriptan SUCCINATE 50 MG TABLET PO PRN (19:45)
[2019-10-14] MEDS ORDERED: cefTRIAXone 1 GM IVPB PREMIX 50 ML IV ONE ×2 (19:45→22:27)
[2019-10-14] MEDS: ACETAMINOPHEN 325 MG TABLET PO PRN (21:38)
[2019-10-14 21:39] VITALS: BP_SYST 159
[2019-10-15 00:10] VITALS: BP_SYST 153
[2019-10-15] MEDS: MORPHINE 2 MG/ML INJ. SYRINGE IVP PRN ×2 (02:45→08:35)
[2019-10-15] MEDS: traMADol HCL HCL 50 MG TABLET (ULTRAM) PO PRN (03:55)
[2019-10-15] MEDS ORDERED: LEVOTHYROXINE SODIUM 0.125 MG TABLET PO SCH (07:00)
[2019-10-15 07:27] LABS: ALANINE AMINOTRANSFERASE 57 U/L (12-78); ALBUMIN 2.8 g/dL (3.4-4.8); ANION GAP 7 (5-15); ASPARTATE AMINOTRANSFERASE 41 U/L (10-37); CALCIUM 8.2 mg/dL (8.4-11.0); CHLORIDE 104 mmol/L (98-107); CREATININE 0.83 mg/dL (0.55-1.30); GLUCOSE 128 mg/dL (70-99); POTASSIUM 3.8 mmol/L (3.5-5.1); SODIUM SERUM 140 mmol/L (136-145); THYROID STIMULATING HORMONE 6.19 uIu/mL (0.36-3.74); TOTAL BILIRUBIN 0.4 mg/dL (0.0-1.0); UREA NITROGEN, BLOOD 11 mg/dL (8-21)
[2019-10-15 07:28] LABS: BASOPHILS % (AUTO) 0.4 % (0.0-2.0); EOSINOPHILS # (AUTO) 0.1 K/uL (0.0-0.4); EOSINOPHILS % (AUTO) 1.3 % (0.0-4.0); HEMATOCRIT 42.3 % (36-48); LYMPHOCYTES # (AUTO) 0.5 K/uL (1.0-5.5); LYMPHOCYTES % (AUTO) 10.3 % (20.5-51.5); MEAN CORPUSCULAR HEMOGLOBIN 29 pg (27-31); MEAN CORPUSCULAR HGB CONC 33 % (32-36); MEAN CORPUSCULAR VOLUME 89 fL (79.0-98.0); MONOCYTES # (AUTO) 0.4 K/uL (0.0-1.0); MONOCYTES % (AUTO) 7.7 % (1.7-9.3); NEUTROPHILS # (AUTO) 4.1 K/uL (1.8-7.7); NEUTROPHILS % (AUTO) 80.3 % (40.0-70.0); PLATELET COUNT (AUTO) 132 K/uL (130-430); RED BLOOD CELL COUNT(AUTO) 4.78 MIL/uL (4.2-6.2); RED CELL DISTRIBUTION WIDTH 15.7 % (9.0-15.0); WHITE BLOOD COUNT (AUTO) 5.1 K/uL (4.8-10.8)
[2019-10-15 07:52] LABS: CHOLESTEROL 156 mg/dL (<200); HDL CHOLESTEROL 38 mg/dL (>55); LDL CHOLESTEROL 85 mg/dL (<100); TRIGLYCERIDES 113 mg/dL (30-150)
[2019-10-15 08:23] VITALS: BP_SYST 153
[2019-10-15] MEDS: ASPIRIN 81 MG TABLET(ECOTRIN) PO SCH (08:37)
[2019-10-15] MEDS: LOSARTAN POTASSIUM 50 MG TABLET (COZAAR) PO SCH (08:37)
[2019-10-15] MEDS: ATORVASTATIN 10 MG TABLET PO SCH (08:37)
[2019-10-15] MEDS ORDERED: APIXABAN 2.5 MG TABLET PO SCH (09:00)
[2019-10-15] MEDS: MORPHINE SULFATE 10 MG/ML VIAL IVP PRN ×2 (11:53→15:29)
[2019-10-15 12:25] VITALS: BP_SYST 165
[2019-10-15] MEDS: ONDANSETRON HCL 4 MG/2 ML VIAL IVP PRN ×2 (13:49→18:12)
[2019-10-15] MEDS ORDERED: LORazepam 1 MG TABLET PO PRN (14:30)
[2019-10-15] MEDS ORDERED: QUEtiapine FUMARATE 25 MG TABLET PO SCH (14:30)
[2019-10-15 16:17] VITALS: BP_SYST 165
[2019-10-15 20:16] VITALS: BP_SYST 157
[2019-10-15] MEDS ORDERED: traZODone HCL 50 MG TABLET (DESYREL) PO SCH (21:00)
[2019-10-15] MEDS: cefTRIAXone 1 GM in D5W 50 ML IV SCH (22:03)
[2019-10-15] MEDS: APIXABAN 2.5 MG TABLET PO SCH (22:05)
[2019-10-15 23:41] VITALS: BP_SYST 157
[2019-10-16] MEDS: traMADol HCL HCL 50 MG TABLET (ULTRAM) PO PRN (06:12)
[2019-10-16] MEDS: LEVOTHYROXINE SODIUM 0.15 MG TABLET PO SCH (06:12)
[2019-10-16 06:15] LABS: BASOPHILS % (AUTO) 0.3 % (0.0-2.0); EOSINOPHILS # (AUTO) 0.1 K/uL (0.0-0.4); EOSINOPHILS % (AUTO) 2.2 % (0.0-4.0); HEMATOCRIT 42.1 % (36-48); HEMOGLOBIN 13.8 g/dL (12.0-16.0); LYMPHOCYTES # (AUTO) 0.7 K/uL (1.0-5.5); LYMPHOCYTES % (AUTO) 12.4 % (20.5-51.5); MEAN CORPUSCULAR HEMOGLOBIN 29 pg (27-31); MEAN CORPUSCULAR HGB CONC 33 % (32-36); MEAN CORPUSCULAR VOLUME 89 fL (79.0-98.0); MONOCYTES # (AUTO) 0.4 K/uL (0.0-1.0); MONOCYTES % (AUTO) 6.9 % (1.7-9.3); NEUTROPHILS # (AUTO) 4.2 K/uL (1.8-7.7); NEUTROPHILS % (AUTO) 78.2 % (40.0-70.0); PLATELET COUNT (AUTO) 127 K/uL (130-430); RED BLOOD CELL COUNT(AUTO) 4.72 MIL/uL (4.2-6.2); RED CELL DISTRIBUTION WIDTH 15.3 % (9.0-15.0); WHITE BLOOD COUNT (AUTO) 5.4 K/uL (4.8-10.8)
[2019-10-16 06:34] LABS: ANION GAP 6 (5-15); CHLORIDE 98 mmol/L (98-107); CREATININE 0.85 mg/dL (0.55-1.30); GLUCOSE 122 mg/dL (70-99); POTASSIUM 3.6 mmol/L (3.5-5.1); SODIUM SERUM 132 mmol/L (136-145); UREA NITROGEN, BLOOD 14 mg/dL (8-21)
[2019-10-16 07:42] VITALS: BP_SYST 153
[2019-10-16 07:46] VITALS: BP_SYST 142
[2019-10-16] MEDS: APIXABAN 2.5 MG TABLET PO SCH ×2 (08:23→20:50)
[2019-10-16] MEDS: LOSARTAN POTASSIUM 50 MG TABLET (COZAAR) PO SCH (08:24)
[2019-10-16] MEDS: ASPIRIN 81 MG TABLET(ECOTRIN) PO SCH (08:24)
[2019-10-16] MEDS: ATORVASTATIN 10 MG TABLET PO SCH (08:24)
[2019-10-16] MEDS: ACETAMINOPHEN 325 MG TABLET PO PRN (08:32)
[2019-10-16] MEDS ORDERED: MILK OF MAGNESIA 30 ML UDC PO ONE (08:45)
[2019-10-16 10:59] VITALS: BP_SYST 153
[2019-10-16] MEDS: DOCUSATE SODIUM 100 MG CAPSULE PO SCH (11:14)
[2019-10-16 12:21] VITALS: BP_SYST 143
[2019-10-16 16:25] VITALS: BP_SYST 150
[2019-10-16] MEDS: MORPHINE SULFATE 10 MG/ML VIAL IVP PRN ×2 (19:50→23:53)
[2019-10-16 20:00] VITALS: BP_SYST 163
[2019-10-16] MEDS: cefTRIAXone 1 GM in D5W 50 ML IV SCH (20:49)
[2019-10-16] MEDS: NYSTATIN 15 GM TOPICAL POWDER TP SCH (20:50)
[2019-10-17 00:14] VITALS: BP_SYST 156
[2019-10-17] MEDS: LEVOTHYROXINE SODIUM 0.15 MG TABLET PO SCH (06:09)
[2019-10-17 06:16] LABS: ANION GAP 2 (5-15); CALCIUM 7.9 mg/dL (8.4-11.0); CHLORIDE 100 mmol/L (98-107); CREATININE 0.83 mg/dL (0.55-1.30); GLUCOSE 112 mg/dL (70-99); POTASSIUM 3.8 mmol/L (3.5-5.1); SODIUM SERUM 133 mmol/L (136-145); UREA NITROGEN, BLOOD 13 mg/dL (8-21)
[2019-10-17 06:27] LABS: BASOPHILS % (AUTO) 0.3 % (0.0-2.0); EOSINOPHILS # (AUTO) 0.2 K/uL (0.0-0.4); EOSINOPHILS % (AUTO) 2.9 % (0.0-4.0); HEMATOCRIT 43.5 % (36-48); HEMOGLOBIN 14.6 g/dL (12.0-16.0); LYMPHOCYTES # (AUTO) 0.6 K/uL (1.0-5.5); LYMPHOCYTES % (AUTO) 9.6 % (20.5-51.5); MEAN CORPUSCULAR HEMOGLOBIN 30 pg (27-31); MEAN CORPUSCULAR HGB CONC 34 % (32-36); MEAN CORPUSCULAR VOLUME 89 fL (79.0-98.0); MONOCYTES # (AUTO) 0.5 K/uL (0.0-1.0); MONOCYTES % (AUTO) 7.8 % (1.7-9.3); NEUTROPHILS # (AUTO) 4.9 K/uL (1.8-7.7); NEUTROPHILS % (AUTO) 79.4 % (40.0-70.0); PLATELET COUNT (AUTO) 136 K/uL (130-430); RED BLOOD CELL COUNT(AUTO) 4.91 MIL/uL (4.2-6.2); WHITE BLOOD COUNT (AUTO) 6.2 K/uL (4.8-10.8)
[2019-10-17 08:23] VITALS: BP_SYST 147
[2019-10-17] MEDS: ACETAMINOPHEN 325 MG TABLET PO PRN ×2 (08:43→20:44)
[2019-10-17] MEDS: APIXABAN 2.5 MG TABLET PO SCH ×2 (08:44→20:48)
[2019-10-17] MEDS: ATORVASTATIN 10 MG TABLET PO SCH (08:45)
[2019-10-17] MEDS: LOSARTAN POTASSIUM 50 MG TABLET (COZAAR) PO SCH (08:45)
[2019-10-17] MEDS: ASPIRIN 81 MG TABLET(ECOTRIN) PO SCH (08:45)
[2019-10-17] MEDS: DOCUSATE SODIUM 100 MG CAPSULE PO SCH (08:46)
[2019-10-17] MEDS ORDERED: DOCUSATE SODIUM 100 MG CAPSULE PO ONE (08:53)
[2019-10-17] MEDS ORDERED: BISACODYL 10 MG/SUPPOSITORY RC ONE (09:00)
[2019-10-17] MEDS: NYSTATIN 15 GM TOPICAL POWDER TP SCH ×2 (09:51→20:44)
[2019-10-17 12:57] VITALS: BP_SYST 166
[2019-10-17 16:21] VITALS: BP_SYST 136
[2019-10-17 16:40] VITALS: BP_SYST 136
[2019-10-17] MEDS ORDERED: CHOLECALCIFEROL (VITAMIN D3) 2,000 UNIT TABLET PO ONE (17:00)
[2019-10-18 00:28] VITALS: BP_SYST 142
[2019-10-18] MEDS: LEVOTHYROXINE SODIUM 0.15 MG TABLET PO SCH (06:25)
[2019-10-18 08:38] VITALS: BP_SYST 126
[2019-10-18] MEDS ORDERED: CHOLECALCIFEROL (VITAMIN D3) 2,000 UNIT TABLET PO SCH (09:00)
[2019-10-18] MEDS: NYSTATIN 15 GM TOPICAL POWDER TP SCH (09:08)
[2019-10-18] MEDS: DOCUSATE SODIUM 100 MG CAPSULE PO SCH (09:11)
[2019-10-18] MEDS: ATORVASTATIN 10 MG TABLET PO SCH (09:11)
[2019-10-18] MEDS: ASPIRIN 81 MG TABLET(ECOTRIN) PO SCH (09:11)
[2019-10-18] MEDS: LOSARTAN POTASSIUM 50 MG TABLET (COZAAR) PO SCH (09:11)
[2019-10-18] MEDS: APIXABAN 2.5 MG TABLET PO SCH (09:15)
[2019-10-18 12:37] VITALS: BP_SYST 158
[2019-10-18] MEDS: MORPHINE SULFATE 10 MG/ML VIAL IVP PRN (13:09)
[2019-10-18] MEDS ORDERED: APIX5TAB4 PO ×2 (14:47→14:51)
[2019-10-18 15:18] VITALS: BP_SYST 140
[2019-10-18 16:52] VITALS: BP_SYST 145
== END 2019-10-18 17:20 | DRG 299 ==
LOC: SED 16:28 → STU 19:22
PROVIDERS: ADMIT Internal Medicine; ATTEND Internal Medicine
DX: I82.412 Acute embolism and thrombosis of left femoral vein (principal); R65.11 Systemic inflammatory response syndrome (SIRS) of non-infectious origin with acute organ dysfunction; N39.0 Urinary tract infection, site not specified; I69.354 Hemiplegia and hemiparesis following cerebral infarction affecting left non-dominant side; Z68.43 Body mass index [BMI] 50.0-59.9, adult; I82.432 Acute embolism and thrombosis of left popliteal vein; I82.442 Acute embolism and thrombosis of left tibial vein; E66.01 Morbid (severe) obesity due to excess calories; W18.39XA Other fall on same level, initial encounter; I10 Essential (primary) hypertension; I45.10 Unspecified right bundle-branch block; E03.9 Hypothyroidism, unspecified; G43.909 Migraine, unspecified, not intractable, without status migrainosus; M17.0 Bilateral primary osteoarthritis of knee; J44.9 Chronic obstructive pulmonary disease, unspecified; S50.311A Abrasion of right elbow, initial encounter; E78.00 Pure hypercholesterolemia, unspecified; Z79.82 Long term (current) use of aspirin; Z90.710 Acquired absence of both cervix and uterus; Z79.899 Other long term (current) drug therapy; Y93.89 Activity, other specified; Y92.89 Other specified places as the place of occurrence of the external cause; Y99.8 Other external cause status; Z88.5 Allergy status to narcotic agent; Z88.2 Allergy status to sulfonamides; Z91.011 Allergy to milk products; Z90.49 Acquired absence of other specified parts of digestive tract
CPT/HCPCS: 36415; 70450-TC; 71045; 73560-TC; 74018; 80048; 80053; 80061; 80307; 81000-TC; 82140-TC; 82962; 83605; 83735-TC; 83880; 84439; 84443-TC; 84484; 85025; 85610-TC; 87040-TC; 87081; 87086; 93005; 93306; 93970; 96365; 96372; 97110-GP; 97112-GP; 97116-GP; 97530-GP; 99285; G0378; G0482; J0696; J1650; J1956; J2270; J2405; J7030; J7060

== ENCOUNTER 2021-01-31 15:57 | Emergency (ER) | payer OTHER, MEDICAID ==
[~2021-01-31] VITALS: Ht 160 cm; Wt 102.1 kg
[~2021-01-31 15:57] MED LIST changes: +APIX5TAB4 PO; -IMI50 PO
[2021-01-31 16:39] VITALS: BP_SYST 151
[2021-01-31 18:29] LABS: BASOPHILS % (AUTO) 0.5 % (0.0-2.0); EOSINOPHILS # (AUTO) 0.1 K/uL (0.0-0.4); EOSINOPHILS % (AUTO) 2.3 % (0.0-4.0); HEMATOCRIT 43.9 % (36-48); HEMOGLOBIN 14.5 g/dL (12.0-16.0); LYMPHOCYTES # (AUTO) 0.9 K/uL (1.0-5.5); LYMPHOCYTES % (AUTO) 15.1 % (20.5-51.5); MEAN CORPUSCULAR HEMOGLOBIN 29 pg (27-31); MEAN CORPUSCULAR HGB CONC 33 % (32-36); MEAN CORPUSCULAR VOLUME 89 fL (79.0-98.0); MONOCYTES # (AUTO) 0.4 K/uL (0.0-1.0); MONOCYTES % (AUTO) 6.5 % (1.7-9.3); NEUTROPHILS # (AUTO) 4.7 K/uL (1.8-7.7); NEUTROPHILS % (AUTO) 75.6 % (40.0-70.0); PLATELET COUNT (AUTO) 160 K/uL (130-430); RED BLOOD CELL COUNT(AUTO) 4.95 MIL/uL (4.2-6.2); RED CELL DISTRIBUTION WIDTH 15.8 % (9.0-15.0); WHITE BLOOD COUNT (AUTO) 6.3 K/uL (4.8-10.8)
[2021-01-31 18:34] LABS: ANION GAP 6 (5-15); CALCIUM 8.8 mg/dL (8.4-11.0); CHLORIDE 106 mmol/L (98-107); CREATININE 0.94 mg/dL (0.55-1.30); GLUCOSE 134 mg/dL (70-99); SODIUM SERUM 139 mmol/L (136-145); UREA NITROGEN, BLOOD 18 mg/dL (8-21)
[2021-01-31 18:43] LABS: ALANINE AMINOTRANSFERASE 23 U/L (12-78); ALBUMIN 3.1 g/dL (3.4-4.8); ASPARTATE AMINOTRANSFERASE 20 U/L (10-37); LIPASE 140 U/L (73-393); TOTAL BILIRUBIN 0.3 mg/dL (0.0-1.0)
[2021-01-31 18:59] LABS: BILIRUBIN,URINE NEGATIVE (NEGATIVE); BLOOD, URINE 1+ (NEGATIVE); CLARITY/URINE CLEAR (CLEAR); COLOR,URINE YELLOW (YELLOW); GLUCOSE,URINE NEGATIVE (NEGATIVE); KETONES,URINE NEGATIVE (NEGATIVE); LEUKOCYTE ESTERASE ,URINE NEGATIVE (NEGATIVE); NITRITE, URINE POSITIVE (NEGATIVE); PH,URINE 5.5 (5.0-8.0); PROTEIN URINE NEGATIVE (NEGATIVE); UROBILINOGEN,URINE 0.2 (0.2-1.0)
[2021-01-31 19:16] LABS: RBC,URINE 0-3 /HPF (0-3); WBC,URINE 0-3 /HPF (0-3)
[2021-01-31 19:17] LABS: BACTERIA,URINE MANY /HPF (None Seen); CALCIUM OXALATE CRYSTALS,UR None Seen /HPF (None Seen); CALCIUM PHOSPHATE CRYSTALS,UR None Seen /HPF (None Seen); COARSE GRANULAR CASTS,URINE None Seen /LPF (None Seen); FINE GRANULAR CASTS,URINE None Seen /LPF (None Seen); HYALINE CASTS, URINE None Seen /LPF (None Seen); MUCUS,URINE None Seen /LPF (None Seen); OTHER CASTS, URINE None Seen /LPF (None Seen); OTHER CRYSTALS,URINE None Seen /HPF (None Seen); TRICHOMONAS,URINE None Seen /HPF (None Seen); TRIPLE PHOSPHATE CRYSTAL,UR None Seen /HPF (None Seen); URIC ACID CRYSTALS,URINE None Seen /HPF (None Seen); URINE AMORPHOUS PHOSPHATES None Seen /HPF (None Seen); URINE AMORPHOUS URATE None Seen /HPF (None Seen); WAXY CASTS,URINE None Seen /LPF (None Seen); YEAST,URINE None Seen /HPF (None Seen)
[2021-02-01] MEDS ORDERED: IOHEXOL 350 mgI/mL, 150 ML INFUS..BTL IV ONE (00:07)
[2021-02-01 05:30] VITALS: BP_SYST 150
== END 2021-02-01 05:30 | disposition home or self-care (01) ==
LOC: SED 15:57
DX: R20.0 Anesthesia of skin (principal); I10 Essential (primary) hypertension; E78.00 Pure hypercholesterolemia, unspecified; Z79.899 Other long term (current) drug therapy; Z88.2 Allergy status to sulfonamides; Z88.5 Allergy status to narcotic agent
CPT/HCPCS: 36415; 70450; 70496; 70498; 76376; 80053; 81000; 83690; 84484; 85025; 87086; 93005; 99285; Q9967

== ENCOUNTER 2021-08-21 08:06 | Emergency (ER) | payer OTHER, MEDICAID ==
[~2021-08-21] VITALS: Ht 160 cm; Wt 102.1 kg
[2021-08-21 08:10] VITALS: BP_SYST 105
[2021-08-21] MEDS ORDERED: ONDANSETRON 4 MG ODT TAB PO ONE (08:15)
[2021-08-21 08:46] LABS: BASOPHILS % (AUTO) 0.1 % (0.0-2.0); EOSINOPHILS % (AUTO) 0.3 % (0.0-4.0); HEMOGLOBIN 14.9 g/dL (12.0-16.0); LYMPHOCYTES # (AUTO) 0.5 K/uL (1.0-5.5); LYMPHOCYTES % (AUTO) 10.9 % (20.5-51.5); MEAN CORPUSCULAR HEMOGLOBIN 28 pg (27-31); MEAN CORPUSCULAR HGB CONC 33 % (32-36); MEAN CORPUSCULAR VOLUME 87 fL (79.0-98.0); MONOCYTES # (AUTO) 0.3 K/uL (0.0-1.0); NEUTROPHILS # (AUTO) 3.9 K/uL (1.8-7.7); NEUTROPHILS % (AUTO) 82.7 % (40.0-70.0); PLATELET COUNT (AUTO) 140 K/uL (130-430); RED BLOOD CELL COUNT(AUTO) 5.29 MIL/uL (4.2-6.2); RED CELL DISTRIBUTION WIDTH 16.3 % (9.0-15.0); WHITE BLOOD COUNT (AUTO) 4.7 K/uL (4.8-10.8)
[2021-08-21 08:51] LABS: ANION GAP 12 (5-15); CALCIUM 7.5 mg/dL (8.4-11.0); CHLORIDE 103 mmol/L (98-107); CREATININE 0.95 mg/dL (0.55-1.30); GLUCOSE 111 mg/dL (70-99); POTASSIUM 3.8 mmol/L (3.5-5.1); SODIUM SERUM 140 mmol/L (136-145); UREA NITROGEN, BLOOD 23 mg/dL (8-21)
[2021-08-21 09:00] LABS: ALANINE AMINOTRANSFERASE 16 U/L (12-78); AMYLASE 20 U/L (0-100); ASPARTATE AMINOTRANSFERASE 14 U/L (10-37); LACTATE DEHYDROGENASE 125 U/L (81-234); LIPASE 18 U/L (73-393); TOTAL BILIRUBIN 0.5 mg/dL (0.0-1.0)
[2021-08-21 09:27] LABS: C-REACTIVE PROTEIN QUANT 5.3 mg/dL (0-0.5)
[2021-08-21] MEDS ORDERED: ONDA-8 TL (10:33)
[2021-08-21] MEDS ORDERED: IBUP-2018 PO (10:33)
[2021-08-21 12:41] VITALS: BP_SYST 137
== END 2021-08-21 12:42 | disposition home or self-care (01) ==
LOC: SED 08:06
DX: R11.2 Nausea with vomiting, unspecified (principal); R19.7 Diarrhea, unspecified; I10 Essential (primary) hypertension; E78.00 Pure hypercholesterolemia, unspecified; Z88.2 Allergy status to sulfonamides; Z88.5 Allergy status to narcotic agent; Z91.011 Allergy to milk products; Z79.899 Other long term (current) drug therapy
CPT/HCPCS: 36415; 71045; 74176; 76376; 80053; 82150; 83605; 83615; 83690; 84484; 85025; 86140; 99285; Q0162

== ENCOUNTER 2023-12-11 11:29 | Emergency (ER) | payer OTHER, MEDICAID ==
[~2023-12-11] VITALS: Ht 165.1 cm; Wt 117.9 kg
[~2023-12-11 11:29] MED LIST changes: +LEVO750T64 PO; -LIP10 PO; -OLME20TA13 PO; +OLME20TA74 PO; +ONDA-8 TL
[2023-12-11 11:36] VITALS: BP_SYST 118; PULSE 92; RESP 19; TEMP 97.5; O2SAT 98
[2023-12-11 12:26] LABS: BASOPHILS % (AUTO) 0.6 % (0.0-2.0); EOSINOPHILS # (AUTO) 0.1 K/uL (0.0-0.4); EOSINOPHILS % (AUTO) 2.8 % (0.0-4.0); HEMATOCRIT 35.1 % (36-48); HEMOGLOBIN 11.2 g/dL (12.0-16.0); LYMPHOCYTES # (AUTO) 0.7 K/uL (1.0-5.5); LYMPHOCYTES % (AUTO) 13.8 % (20.5-51.5); MEAN CORPUSCULAR HEMOGLOBIN 29 pg (27-31); MEAN CORPUSCULAR HGB CONC 32 % (32-36); MEAN CORPUSCULAR VOLUME 90 fL (79.0-98.0); MONOCYTES # (AUTO) 0.3 K/uL (0.0-1.0); MONOCYTES % (AUTO) 6.5 % (1.7-9.3); NEUTROPHILS # (AUTO) 3.7 K/uL (1.8-7.7); NEUTROPHILS % (AUTO) 76.3 % (40.0-70.0); PLATELET COUNT (AUTO) 209 K/uL (130-430); RED CELL DISTRIBUTION WIDTH 17.1 % (9.0-15.0); WHITE BLOOD COUNT (AUTO) 4.9 K/uL (4.8-10.8)
[2023-12-11 12:31] LABS: PROTHROMBIN TIME 10.5 SECS (9.5-12.5)
[2023-12-11] MEDS ORDERED: OXIC30CR3 TP (12:50)
[2023-12-11] MEDS ORDERED: OXYB5TAB21 PO (12:50)
[2023-12-11] MEDS ORDERED: LIP10 PO (12:50)
[2023-12-11] MEDS ORDERED: LACT1TAB14 PO (12:50)
[2023-12-11] MEDS ORDERED: HYDR59LO TP (12:50)
[2023-12-11] MEDS ORDERED: NYST15PO2 TP (12:50)
[2023-12-11 12:51] LABS: ALANINE AMINOTRANSFERASE 24 U/L (12-78); ALBUMIN 2.6 g/dL (3.4-4.8); ANION GAP 8 (5-15); ASPARTATE AMINOTRANSFERASE 18 U/L (10-37); CALCIUM 8.6 mg/dL (8.4-11.0); CARBON DIOXIDE 24 mmol/L (23-29); CHLORIDE 108 mmol/L (98-107); CREATININE 1.14 mg/dL (0.55-1.30); GLUCOSE 102 mg/dL (74-106); SODIUM SERUM 140 mmol/L (136-145); TOTAL BILIRUBIN 0.5 mg/dL (0.0-1.0); TOTAL PROTEIN, SERUM 6.4 g/dL (6.4-8.3); UREA NITROGEN, BLOOD 15 mg/dL (8-21)
[2023-12-11 13:20] LABS: BILIRUBIN,DIRECT 0.2 mg/dL (0.0-0.3)
[2023-12-11] MEDS ORDERED: APIX5TAB PO (14:24)
[2023-12-11] MEDS ORDERED: APIX5TAB4 PO (14:24)
[2023-12-11] MEDS: ENOXAPARIN SODIUM 80 MG/0.8 ML SYRINGE SUBCUT ONE (14:35)
[2023-12-11 15:47] VITALS: BP_SYST 118; PULSE 92; RESP 19; TEMP 97.5; O2SAT 98
== END 2023-12-11 15:41 ==
LOC: SED 11:29
DX: I82.402 Acute embolism and thrombosis of unspecified deep veins of left lower extremity (principal); I10 Essential (primary) hypertension; Z88.2 Allergy status to sulfonamides; Z88.5 Allergy status to narcotic agent; Z88.6 Allergy status to analgesic agent; Z91.011 Allergy to milk products; Z79.899 Other long term (current) drug therapy; Z79.2 Long term (current) use of antibiotics
CPT/HCPCS: 99285; 93971; 80076; 80048; 85025; 85610; 85730; 87040; 36415; 73590; 96372; 83605; 82397; J1650

== ENCOUNTER 2023-12-23 05:09 | Inpatient (IN) | payer OTHER, MEDICAID ==
[~2023-12-23] VITALS: Ht 160 cm; Wt 111.1 kg
[~2023-12-23 05:09] MED LIST changes: +APIX5TAB PO; +ATOR-449 PO; +HYDR59LO TP; +LACT1TAB14 PO; -LEVO750T64 PO; +NYST15PO2 TP; -ONDA-8 TL; +OXIC30CR3 TP; +OXYB5TAB21 PO
[2023-12-23 05:14] VITALS: BP_SYST 128; PULSE 98; RESP 19; TEMP 97.8; O2SAT 100
[2023-12-23] MEDS ORDERED: LEVO100T9 PO (05:40)
[2023-12-23] MEDS ORDERED: ACET-73 PO (05:40)
[2023-12-23] MEDS ORDERED: BETA45CR3 TP (05:40)
[2023-12-23] MEDS ORDERED: ATOR-449 PO (05:40)
[2023-12-23] MEDS ORDERED: ASPI-1393 PO (05:40)
[2023-12-23] MEDS ORDERED: CLOT15CR5 TP (05:40)
[2023-12-23] MEDS ORDERED: OXYB-31 PO (05:40)
[2023-12-23] MEDS ORDERED: APIX5TAB PO (05:40)
[2023-12-23 05:43] LABS: BASOPHILS % (AUTO) 0.3 % (0.0-2.0); EOSINOPHILS # (AUTO) 0.1 K/uL (0.0-0.4); EOSINOPHILS % (AUTO) 1.6 % (0.0-4.0); HEMATOCRIT 37.6 % (36-48); HEMOGLOBIN 12.2 g/dL (12.0-16.0); LYMPHOCYTES # (AUTO) 0.6 K/uL (1.0-5.5); LYMPHOCYTES % (AUTO) 9.3 % (20.5-51.5); MEAN CORPUSCULAR HEMOGLOBIN 29 pg (27-31); MEAN CORPUSCULAR HGB CONC 33 % (32-36); MEAN CORPUSCULAR VOLUME 90 fL (79.0-98.0); MONOCYTES # (AUTO) 0.3 K/uL (0.0-1.0); MONOCYTES % (AUTO) 5.4 % (1.7-9.3); NEUTROPHILS # (AUTO) 5.1 K/uL (1.8-7.7); NEUTROPHILS % (AUTO) 83.4 % (40.0-70.0); PLATELET COUNT (AUTO) 194 K/uL (130-430); RED BLOOD CELL COUNT(AUTO) 4.17 MIL/uL (4.2-6.2); RED CELL DISTRIBUTION WIDTH 17.2 % (9.0-15.0); WHITE BLOOD COUNT (AUTO) 6.2 K/uL (4.8-10.8)
[2023-12-23 06:46] LABS: ALANINE AMINOTRANSFERASE 16 U/L (12-78); ALBUMIN 2.6 g/dL (3.4-4.8); ANION GAP 8 (5-15); ASPARTATE AMINOTRANSFERASE 21 U/L (10-37); BILIRUBIN,DIRECT 0.2 mg/dL (0.0-0.3); CALCIUM 8.2 mg/dL (8.4-11.0); CARBON DIOXIDE 24 mmol/L (23-29); CHLORIDE 109 mmol/L (98-107); CREATINE KINASE, TOTAL 36 U/L (26-192); CREATININE 1.18 mg/dL (0.55-1.30); GLUCOSE 129 mg/dL (74-106); POTASSIUM 3.6 mmol/L (3.5-5.1); SODIUM SERUM 141 mmol/L (136-145); TOTAL BILIRUBIN 0.4 mg/dL (0.0-1.0); TOTAL PROTEIN, SERUM 6.6 g/dL (6.4-8.3); UREA NITROGEN, BLOOD 20 mg/dL (8-21)
[2023-12-23] MEDS ORDERED: ONDANSETRON HCL 4 MG/2 ML VIAL IVP PRN (09:00)
[2023-12-23] MEDS ORDERED: traMADol HCL HCL 50 MG TABLET (ULTRAM) PO PRN (10:00)
[2023-12-23 11:12] VITALS: BP_SYST 115; PULSE 87; RESP 18; TEMP 96.1
[2023-12-23 12:20] VITALS: BP_SYST 144; PULSE 66; RESP 18; TEMP 98.1; O2SAT 96
[2023-12-23 16:00] VITALS: BP_SYST 110; PULSE 74; RESP 20; TEMP 98.3; O2SAT 98
[2023-12-23] MEDS ORDERED: traZODone HCL 50 MG TABLET (DESYREL) PO PRN (17:00)
[2023-12-23 20:00] VITALS: BP_SYST 124; PULSE 84; RESP 18; TEMP 98; O2SAT 100
[2023-12-23] MEDS: ATORVASTATIN 10 MG TABLET PO SCH (20:50)
[2023-12-23] MEDS: ACETAMINOPHEN 325 MG TABLET PO PRN (22:48)
[2023-12-24] VITALS (7 sets, daily range): BP systolic 115–144; PULSE 64–94; RESP 14–18; TEMP 97.2–98.4; O2SAT 92–100
[2023-12-24] MEDS: LEVOTHYROXINE SODIUM 0.1 MG TABLET PO SCH (06:21)
[2023-12-24 07:12] LABS: ANION GAP 8 (5-15); CALCIUM 8.2 mg/dL (8.4-11.0); CARBON DIOXIDE 24 mmol/L (23-29); CHLORIDE 110 mmol/L (98-107); CREATININE 0.93 mg/dL (0.55-1.30); GLUCOSE 90 mg/dL (74-106); POTASSIUM 3.2 mmol/L (3.5-5.1); SODIUM SERUM 142 mmol/L (136-145); UREA NITROGEN, BLOOD 15 mg/dL (8-21)
[2023-12-24 08:23] LABS: BASOPHILS % (AUTO) 0.5 % (0.0-2.0); EOSINOPHILS # (AUTO) 0.2 K/uL (0.0-0.4); EOSINOPHILS % (AUTO) 4.7 % (0.0-4.0); HEMATOCRIT 34.9 % (36-48); HEMOGLOBIN 11.4 g/dL (12.0-16.0); LYMPHOCYTES # (AUTO) 0.8 K/uL (1.0-5.5); LYMPHOCYTES % (AUTO) 18.6 % (20.5-51.5); MEAN CORPUSCULAR HEMOGLOBIN 29 pg (27-31); MEAN CORPUSCULAR HGB CONC 33 % (32-36); MEAN CORPUSCULAR VOLUME 90 fL (79.0-98.0); MONOCYTES # (AUTO) 0.3 K/uL (0.0-1.0); MONOCYTES % (AUTO) 7.9 % (1.7-9.3); NEUTROPHILS % (AUTO) 68.3 % (40.0-70.0); PLATELET COUNT (AUTO) 171 K/uL (130-430); RED CELL DISTRIBUTION WIDTH 17.3 % (9.0-15.0); WHITE BLOOD COUNT (AUTO) 4.4 K/uL (4.8-10.8)
[2023-12-24] MEDS: POTASSIUM CHLORIDE 20 MEQ TABLET.ER PO ONE (08:54)
[2023-12-24] MEDS ORDERED: GADOTERATE MEGLUMINE 7.5 MMOL/15 ML VIAL IV ONE (09:22)
[2023-12-24] MEDS: NYSTATIN 15 GM TOPICAL POWDER TP ONE (16:35)
[2023-12-24] MEDS: VANCOMYCIN HCL 1,000 MG in NS 250 ML IV SCH (16:39)
[2023-12-24] MEDS: APIXABAN 2.5 MG TABLET PO SCH (21:49)
[2023-12-24] MEDS: NYSTATIN 15 GM TOPICAL POWDER TP SCH (21:50)
[2023-12-25 00:29] VITALS: BP_SYST 129; PULSE 74; RESP 18; TEMP 96.7; O2SAT 98
[2023-12-25 05:56] LABS: BASOPHILS % (AUTO) 0.2 % (0.0-2.0); EOSINOPHILS # (AUTO) 0.2 K/uL (0.0-0.4); EOSINOPHILS % (AUTO) 3.7 % (0.0-4.0); HEMATOCRIT 36.1 % (36-48); HEMOGLOBIN 11.9 g/dL (12.0-16.0); LYMPHOCYTES # (AUTO) 0.9 K/uL (1.0-5.5); MEAN CORPUSCULAR HEMOGLOBIN 29 pg (27-31); MEAN CORPUSCULAR HGB CONC 33 % (32-36); MEAN CORPUSCULAR VOLUME 88 fL (79.0-98.0); MONOCYTES # (AUTO) 0.4 K/uL (0.0-1.0); MONOCYTES % (AUTO) 6.5 % (1.7-9.3); NEUTROPHILS # (AUTO) 4.3 K/uL (1.8-7.7); NEUTROPHILS % (AUTO) 74.6 % (40.0-70.0); PLATELET COUNT (AUTO) 195 K/uL (130-430); RED BLOOD CELL COUNT(AUTO) 4.09 MIL/uL (4.2-6.2); RED CELL DISTRIBUTION WIDTH 16.8 % (9.0-15.0); WHITE BLOOD COUNT (AUTO) 5.8 K/uL (4.8-10.8)
[2023-12-25 06:51] LABS: ERYTHROCYTE SEDIMENTATION RATE 40 MM/HR (0-20)
[2023-12-25 07:15] LABS: ANION GAP 10 (5-15); CALCIUM 8.3 mg/dL (8.4-11.0); CARBON DIOXIDE 24 mmol/L (23-29); CHLORIDE 108 mmol/L (98-107); GLUCOSE 96 mg/dL (74-106); SODIUM SERUM 142 mmol/L (136-145); UREA NITROGEN, BLOOD 13 mg/dL (8-21)
[2023-12-25 07:20] LABS: POTASSIUM 3.7 mmol/L (3.5-5.1)
[2023-12-25 08:00] VITALS: BP_SYST 135; PULSE 64; RESP 18; TEMP 97.8; O2SAT 97
[2023-12-25 12:26] VITALS: BP_SYST 158; PULSE 76; RESP 18; TEMP 97.2; O2SAT 94
[2023-12-25 16:31] VITALS: BP_SYST 140; PULSE 79; RESP 18; TEMP 97.7; O2SAT 94
[2023-12-25 20:00] VITALS: O2SAT 97
[2023-12-26 01:27] VITALS: BP_SYST 148; PULSE 70; RESP 19; TEMP 97.3; O2SAT 94
[2023-12-26 06:17] LABS: BASOPHILS % (AUTO) 0.6 % (0.0-2.0); EOSINOPHILS # (AUTO) 0.4 K/uL (0.0-0.4); EOSINOPHILS % (AUTO) 8.3 % (0.0-4.0); HEMATOCRIT 34.9 % (36-48); HEMOGLOBIN 11.6 g/dL (12.0-16.0); LYMPHOCYTES # (AUTO) 0.7 K/uL (1.0-5.5); LYMPHOCYTES % (AUTO) 16.4 % (20.5-51.5); MEAN CORPUSCULAR HEMOGLOBIN 29 pg (27-31); MEAN CORPUSCULAR HGB CONC 33 % (32-36); MEAN CORPUSCULAR VOLUME 88 fL (79.0-98.0); MONOCYTES # (AUTO) 0.3 K/uL (0.0-1.0); MONOCYTES % (AUTO) 7.2 % (1.7-9.3); NEUTROPHILS # (AUTO) 2.9 K/uL (1.8-7.7); NEUTROPHILS % (AUTO) 67.5 % (40.0-70.0); PLATELET COUNT (AUTO) 177 K/uL (130-430); RED BLOOD CELL COUNT(AUTO) 3.98 MIL/uL (4.2-6.2); RED CELL DISTRIBUTION WIDTH 16.8 % (9.0-15.0); WHITE BLOOD COUNT (AUTO) 4.3 K/uL (4.8-10.8)
[2023-12-26 07:05] LABS: ANION GAP 7 (5-15); CALCIUM 8.3 mg/dL (8.4-11.0); CARBON DIOXIDE 25 mmol/L (23-29); CHLORIDE 109 mmol/L (98-107); CREATININE 0.86 mg/dL (0.55-1.30); GLUCOSE 91 mg/dL (74-106); POTASSIUM 3.3 mmol/L (3.5-5.1); SODIUM SERUM 141 mmol/L (136-145); UREA NITROGEN, BLOOD 9 mg/dL (8-21)
[2023-12-26 07:35] VITALS: BP_SYST 146; PULSE 72; RESP 20; TEMP 96.6; O2SAT 96
[2023-12-26 10:59] VITALS: BP_SYST 135; PULSE 72; RESP 17; TEMP 97.2; O2SAT 97
[2023-12-26 16:22] VITALS: BP_SYST 130; PULSE 76; RESP 16; TEMP 98; O2SAT 96
[2023-12-26 20:00] VITALS: BP_SYST 122; PULSE 70; RESP 16; TEMP 98.8; O2SAT 97
[2023-12-26 20:15] VITALS: O2SAT 97
[2023-12-27] VITALS (7 sets, daily range): BP systolic 133–159; PULSE 65–76; RESP 16–18; TEMP 97.3–98.5; O2SAT 94–96
[2023-12-27 05:01] LABS: BASOPHILS % (AUTO) 0.6 % (0.0-2.0); EOSINOPHILS # (AUTO) 0.3 K/uL (0.0-0.4); EOSINOPHILS % (AUTO) 6.1 % (0.0-4.0); HEMATOCRIT 35.4 % (36-48); HEMOGLOBIN 11.8 g/dL (12.0-16.0); LYMPHOCYTES # (AUTO) 0.9 K/uL (1.0-5.5); LYMPHOCYTES % (AUTO) 18.6 % (20.5-51.5); MEAN CORPUSCULAR HEMOGLOBIN 29 pg (27-31); MEAN CORPUSCULAR HGB CONC 33 % (32-36); MEAN CORPUSCULAR VOLUME 87 fL (79.0-98.0); MONOCYTES # (AUTO) 0.3 K/uL (0.0-1.0); MONOCYTES % (AUTO) 6.2 % (1.7-9.3); NEUTROPHILS # (AUTO) 3.2 K/uL (1.8-7.7); NEUTROPHILS % (AUTO) 68.5 % (40.0-70.0); PLATELET COUNT (AUTO) 197 K/uL (130-430); RED BLOOD CELL COUNT(AUTO) 4.06 MIL/uL (4.2-6.2); RED CELL DISTRIBUTION WIDTH 16.3 % (9.0-15.0); WHITE BLOOD COUNT (AUTO) 4.6 K/uL (4.8-10.8)
[2023-12-27 05:12] LABS: ANION GAP 6 (5-15); CALCIUM 8.4 mg/dL (8.4-11.0); CARBON DIOXIDE 28 mmol/L (23-29); CHLORIDE 107 mmol/L (98-107); CREATININE 0.85 mg/dL (0.55-1.30); GLUCOSE 90 mg/dL (74-106); POTASSIUM 3.4 mmol/L (3.5-5.1); SODIUM SERUM 141 mmol/L (136-145); UREA NITROGEN, BLOOD 8 mg/dL (8-21)
[2023-12-27] MEDS ORDERED: Vancomycin Per Pharmacy XX (18:32)
[2023-12-28 00:30] VITALS: BP_SYST 104; PULSE 77; RESP 16; TEMP 97.6; O2SAT 95
[2023-12-28 06:08] LABS: BASOPHILS % (AUTO) 0.6 % (0.0-2.0); EOSINOPHILS # (AUTO) 0.3 K/uL (0.0-0.4); EOSINOPHILS % (AUTO) 5.4 % (0.0-4.0); HEMATOCRIT 36.3 % (36-48); HEMOGLOBIN 11.9 g/dL (12.0-16.0); LYMPHOCYTES % (AUTO) 17.7 % (20.5-51.5); MEAN CORPUSCULAR HEMOGLOBIN 29 pg (27-31); MEAN CORPUSCULAR HGB CONC 33 % (32-36); MEAN CORPUSCULAR VOLUME 88 fL (79.0-98.0); MONOCYTES # (AUTO) 0.4 K/uL (0.0-1.0); MONOCYTES % (AUTO) 7.1 % (1.7-9.3); NEUTROPHILS # (AUTO) 3.9 K/uL (1.8-7.7); NEUTROPHILS % (AUTO) 69.2 % (40.0-70.0); PLATELET COUNT (AUTO) 237 K/uL (130-430); RED BLOOD CELL COUNT(AUTO) 4.12 MIL/uL (4.2-6.2); RED CELL DISTRIBUTION WIDTH 16.8 % (9.0-15.0); WHITE BLOOD COUNT (AUTO) 5.6 K/uL (4.8-10.8)
[2023-12-28 06:48] LABS: ANION GAP 7 (5-15); CALCIUM 8.6 mg/dL (8.4-11.0); CARBON DIOXIDE 29 mmol/L (23-29); CHLORIDE 106 mmol/L (98-107); CREATININE 0.98 mg/dL (0.55-1.30); GLUCOSE 101 mg/dL (74-106); POTASSIUM 3.5 mmol/L (3.5-5.1); SODIUM SERUM 142 mmol/L (136-145); UREA NITROGEN, BLOOD 10 mg/dL (8-21)
[2023-12-28 08:03] VITALS: BP_SYST 143; PULSE 69; RESP 17; TEMP 98.4; O2SAT 95
[2023-12-28 11:42] VITALS: BP_SYST 120; PULSE 69; RESP 17; TEMP 97; O2SAT 95
[2023-12-28 14:17] VITALS: BP_SYST 143; PULSE 64; RESP 17; TEMP 98; O2SAT 95
== END 2023-12-28 15:20 | DRG 603 ==
LOC: SED 05:09 → STU 08:47
PROVIDERS: ADMIT Internal Medicine; ATTEND Internal Medicine
DX: L03.116 Cellulitis of left lower limb (principal); Z68.41 Body mass index [BMI] 40.0-44.9, adult; R55 Syncope and collapse; I10 Essential (primary) hypertension; E66.01 Morbid (severe) obesity due to excess calories; M48.061 Spinal stenosis, lumbar region without neurogenic claudication; E03.9 Hypothyroidism, unspecified; Z86.73 Personal history of transient ischemic attack (TIA), and cerebral infarction without residual deficits; Z79.899 Other long term (current) drug therapy; B95.62 Methicillin resistant Staphylococcus aureus infection as the cause of diseases classified elsewhere; D32.0 Benign neoplasm of cerebral meninges
CPT/HCPCS: 36415; 70450-TC; 70553; 72170-TC; 72192-TC; 80048; 80076; 80202; 81001; 82550; 82948; 83037; 84484; 85025; 85651; 87070; 87186; 87230; 93005; 93306; 93971; 97110-GP; 97116-GP; 97530-GP; 99285; A9575; G0378; J0696; J3370; J7050; J7060